=== PATIENT | male | born 1965 | race Caucasian/White ===

== ENCOUNTER 2018-05-26 23:57 | Emergency (ER) | payer OTHER, MEDICAID ==
[~2018-05-26] VITALS: Ht 185.4 cm; Wt 192.8 kg
[2018-05-27 00:04] VITALS: Ht 185.4 cm; Wt 192.8 kg
[2018-05-27 00:24] LABS: BASOPHILS 0.1 % (0-2); EOSINOPHILS 1.1 % (0-7); HEMATOCRIT 44.6 % (42.0-54.0); HEMOGLOBIN 14.6 g/dL (13.5-17.5); IMMATURE GRANULOCYTES 0.2 % (0-5); LYMPHOCYTES 19.9 % (15-50); MCH 29.1 pg (26.0-34.0); MCHC 32.7 g/dL (31.0-37.0); MCV 88.8 fL (80.0-100.0); MEAN PLATELET VOLUME 12.1 fL (7.4-10.4); MONOCYTES 6.5 % (2-11); NEUTROPHILS 72.2 % (40-80); PLATELET COUNT 170 10x3/uL (130-400); RBC 5.02 10x6/uL (4.20-6.10); RDW 14.6 % (11.5-14.5); WBC 9.3 10x3/uL (4.8-10.8)
[2018-05-27 00:42] LABS: APTT 37.2 SECONDS (22.8-39.4); INR 1.14 (0.85-1.17); PROTIME 14.1 SECONDS (11.6-15.0)
[2018-05-27 00:55] LABS: ALBUMIN 3.6 g/dL (3.4-5.0); ALKALINE PHOSPHATASE 74 U/L (46-116); ALT (SGPT) 65 U/L (10-68); BILIRUBIN - TOTAL 0.45 mg/dL (0.2-1.3); CALC OSMOLALITY 271 mosm/kg (275-300); CALCIUM 9.4 mg/dL (8.5-10.1); CARBON DIOXIDE 24.7 mmol/L (21.0-32.0); CHLORIDE - SERUM 100 mmol/L (98-107); CREATININE - SERUM 0.8 mg/dL (0.6-1.3); GLUCOSE 129 mg/dL (74-106); POTASSIUM - SERUM 3.7 mmol/L (3.5-5.1); PROTEIN - SERUM 7.9 g/dL (6.4-8.2); SODIUM 136 mmol/L (136-145); UREA NITROGEN 7 mg/dL (7-18); eGFR NON AFRICAN AMERICAN > 90 mL/min (90-120)
[2018-05-27 01:04] LABS: CKMB 0.5 U/L (0.0-3.6); CREATINE KINASE 55 UL (21-232); MAGNESIUM - SERUM 1.9 mg/dL (1.8-2.4)
[2018-05-27 01:09] LABS: TROPONIN-I < 0.017 ng/mL (0.000-0.060)
[2018-05-27 02:02] VITALS: BP 150/79
== END 2018-05-27 02:02 | disposition home or self-care (01) ==
LOC: D.ER 23:57
PROVIDERS: Family Medicine
DX: R00.2 Palpitations (principal); T43.615A Adverse effect of caffeine, initial encounter; Y92.019 Unspecified place in single-family (private) house as the place of occurrence of the external cause; E66.01 Morbid (severe) obesity due to excess calories

== ENCOUNTER 2018-05-29 21:43 | Emergency (ER) | payer OTHER, MEDICAID ==
[2018-05-29 22:18] LABS: BASOPHILS 0.2 % (0-2); EOSINOPHILS 1.2 % (0-7); HEMATOCRIT 44.9 % (42.0-54.0); HEMOGLOBIN 14.7 g/dL (13.5-17.5); IMMATURE GRANULOCYTES 0.3 % (0-5); LYMPHOCYTES 14.1 % (15-50); MCH 29.3 pg (26.0-34.0); MCHC 32.7 g/dL (31.0-37.0); MCV 89.4 fL (80.0-100.0); MEAN PLATELET VOLUME 12.5 fL (7.4-10.4); MONOCYTES 7.3 % (2-11); NEUTROPHILS 76.9 % (40-80); RBC 5.02 10x6/uL (4.20-6.10); WBC 10.8 10x3/uL (4.8-10.8)
[2018-05-29 22:22] LABS: PLATELET COUNT 219 10x3/uL (130-400)
[2018-05-29 22:35] LABS: ALBUMIN 3.6 g/dL (3.4-5.0); ALKALINE PHOSPHATASE 75 U/L (46-116); ALT (SGPT) 79 U/L (10-68); BILIRUBIN - TOTAL 0.55 mg/dL (0.2-1.3); CALC OSMOLALITY 271 mosm/kg (275-300); CHLORIDE - SERUM 100 mmol/L (98-107); CREATININE - SERUM 0.8 mg/dL (0.6-1.3); GLUCOSE 120 mg/dL (74-106); PROTEIN - SERUM 8.4 g/dL (6.4-8.2); SODIUM 136 mmol/L (136-145); UREA NITROGEN 9 mg/dL (7-18); eGFR NON AFRICAN AMERICAN > 90 mL/min (90-120)
[2018-05-29 22:42] LABS: CREATINE KINASE 139 UL (21-232); PRO BNP 177 pg/mL (0-125); TROPONIN-I < 0.017 ng/mL (0.000-0.060)
== END 2018-05-29 23:25 | disposition home or self-care (01) ==
LOC: D.ER 21:43
PROVIDERS: Family Medicine
DX: R00.2 Palpitations (principal)

== ENCOUNTER 2018-06-13 20:25 | Emergency (ER) | payer OTHER, MEDICAID ==
[~2018-06-13] VITALS: Ht 185.4 cm; Wt 195.0 kg
[2018-06-13 20:30] VITALS: Ht 185.4 cm; Wt 195.0 kg
[2018-06-13 21:28] LABS: BASOPHILS 0.1 % (0-2); EOSINOPHILS 0.9 % (0-7); HEMATOCRIT 40.6 % (42.0-54.0); HEMOGLOBIN 13.3 g/dL (13.5-17.5); IMMATURE GRANULOCYTES 0.1 % (0-5); LYMPHOCYTES 10.7 % (15-50); MCHC 32.8 g/dL (31.0-37.0); MCV 88.6 fL (80.0-100.0); MEAN PLATELET VOLUME 11.1 fL (7.4-10.4); MONOCYTES 6.3 % (2-11); NEUTROPHILS 81.9 % (40-80); PLATELET COUNT 191 10x3/uL (130-400); RBC 4.58 10x6/uL (4.20-6.10); RDW 14.1 % (11.5-14.5); WBC 9.6 10x3/uL (4.8-10.8)
[2018-06-13 21:48] LABS: ALBUMIN 3.1 g/dL (3.4-5.0); ALKALINE PHOSPHATASE 76 U/L (46-116); ALT (SGPT) 27 U/L (10-68); BILIRUBIN - TOTAL 0.23 mg/dL (0.2-1.3); CALC OSMOLALITY 287 mosm/kg (275-300); CALCIUM 8.7 mg/dL (8.5-10.1); CARBON DIOXIDE 25.8 mmol/L (21.0-32.0); CHLORIDE - SERUM 105 mmol/L (98-107); CREATININE - SERUM 1.1 mg/dL (0.6-1.3); GLUCOSE 141 mg/dL (74-106); POTASSIUM - SERUM 3.8 mmol/L (3.5-5.1); PROTEIN - SERUM 7.4 g/dL (6.4-8.2); SODIUM 143 mmol/L (136-145); UREA NITROGEN 14 mg/dL (7-18); eGFR NON AFRICAN AMERICAN 75 mL/min (90-120)
[2018-06-13 21:51] LABS: APPEARANCE CLEAR (CLEAR); BILIRUBIN NEGATIVE (NEGATIVE); COLOR YELLOW (YELLOW); GLUCOSE NEGATIVE (NEGATIVE); KETONE NEGATIVE (NEGATIVE); NITRITE POSITIVE (NEGATIVE); PROTEIN NEGATIVE (NEGATIVE); SPECIFIC GRAVITY 1.025 (1.005-1.020); UROBILINOGEN NORMAL (NORMAL)
[2018-06-13 21:52] LABS: BACTERIA MODERATE /hpf (NONE SEEN); RED CELLS - URINE OCC /hpf (0-5); WHITE CELLS - URINE 0-5 /hpf (0-5)
[2018-06-13 21:57] LABS: PRO BNP 158 pg/mL (0-125)
[2018-06-13] MEDS ORDERED: MACROBID100 MG PO (22:17)
[2018-06-13 22:30] VITALS: BP 142/76
== END 2018-06-13 22:30 | disposition home or self-care (01) ==
LOC: D.ER 20:25
PROVIDERS: Family Medicine
DX: N39.0 Urinary tract infection, site not specified (principal); J44.9 Chronic obstructive pulmonary disease, unspecified

== ENCOUNTER → 2018-07-19 12:54 | Outpatient (CLI) | payer OTHER, MEDICAID ==
[2018-06-13 20:30] VITALS: BMI 56.7
[~2018-07-19 12:54] MED LIST: FLOMAX0.4 MG PO; FUROSEMIDE40 MG PO; MACROBID100 MG PO
== END | disposition home or self-care (01) ==
LOC: D.CT 12:54
DX: R33.9 Retention of urine, unspecified (principal)

== ENCOUNTER 2018-07-21 06:50 | Day surgery (SDC) | payer OTHER, MEDICAID ==
[2018-07-18 15:59] LABS: HEMATOCRIT 40.8 % (42.0-54.0); HEMOGLOBIN 13.3 g/dL (13.5-17.5); MCH 28.9 pg (26.0-34.0); MCHC 32.6 g/dL (31.0-37.0); MCV 88.7 fL (80.0-100.0); MEAN PLATELET VOLUME 10.7 fL (7.4-10.4); RBC 4.6 10x6/uL (4.20-6.10); RDW 13.9 % (11.5-14.5); WBC 8.5 10x3/uL (4.8-10.8)
[2018-07-18 16:25] LABS: CALC OSMOLALITY 277 mosm/kg (275-300); CALCIUM 8.8 mg/dL (8.5-10.1); CARBON DIOXIDE 26.5 mmol/L (21.0-32.0); CHLORIDE - SERUM 103 mmol/L (98-107); CREATININE - SERUM 0.8 mg/dL (0.6-1.3); GLUCOSE 123 mg/dL (74-106); POTASSIUM - SERUM 4.2 mmol/L (3.5-5.1); SODIUM 139 mmol/L (136-145); UREA NITROGEN 10 mg/dL (7-18); eGFR NON AFRICAN AMERICAN > 90 mL/min (90-120)
[~2018-07-21] VITALS: Ht 185.4 cm; Wt 192.8 kg
[2018-07-21 07:39] VITALS: BP 141/83; Ht 185.4 cm; Wt 192.8 kg
--- NOTE | 2018-07-21 11:35 | NUR ---
REC'D PT FROM SURGERY. FAMILY AT BEDSIDE. JONES TO GRAVITY DRAINAGE WITH YELLOW URINE NOTED. CRANBERRY JUICE AND FL TRAY BROUGHT TO PT.
--- NOTE | 2018-07-21 12:00 | NUR ---
TOLERATED FL TRAY. IV DC'D WITH CATHETER INTACT.
--- NOTE | 2018-07-21 12:10 | NUR ---
WRITTEN AND VERBAL DC INST, GIVEN TO PT. VERBALIZED UNDERSTANDING. PATIENT RELATES HE DOES NOT WANT A LEG BAG FOR CATHETER. INSTRUCTION SHEET FOR CATHETR CARE GIVEN TO PT. RELATES HE HAS HAD CATHETERS BEFORE.
--- NOTE | 2018-07-21 12:25 | NUR ---
DC'D HOME WITH FAMILY VIA PRIVATE VEHICLE. TAKEN TO VEHICLE VIA WC. STABLE AT TIME OF DC.
--- NOTE | 2018-07-21 12:53 | OP ---
PATIENT NAME: JAVIER SAAB MEDICAL RECORD: [id number] :69 LOCATION:[facility] ADMISSION DATE: SURGEON: JOSE L LYNNE MD DATE OF OPERATION: 07/21/2018 SURGEON: Jose L Lynne MD ANESTHESIA: TIVA by Mello Askew CRNA PROCEDURES: Cystoscopy, direct vision internal urethrotomy. FINDINGS: Very tight urethral stricture in the bulbar urethra. DIAGNOSIS: Bulbar urethral stricture. SPECIMENS: None. ESTIMATED BLOOD LOSS: Minimal. CLINICAL HISTORY: This is a 52-year-old male, who has a history of urethral strictures. He has had 3 stricture surgeries performed by his urologist in [place] and the last one was done by urologist in [place], [place]. He continues to have difficulty voiding with nocturia times 3 to 5 and a very slow urinary flow. His postvoid residual when we examined him was 11 mL. He comes today to have cystoscopy and DVIU of his urethral stricture. He is not allergic to any medications. He was given [employer] delivery consultant to the OR. DESCRIPTION OF PROCEDURE: The patient was given IV sedation. He was then placed into dorsal lithotomy position and prepped and draped. The optic urethrotome was used with a 0-degree lens. The anterior urethra was normal until we came to a very tight pinhole stricture in the bulbar urethra. A Sensor wire was placed through the stricture lumen and into the bladder. The stricture itself was scarcely wider than the diameter of the Sensor wire. We then placed a cold knife in the 12 o'clock position through the stricture zone and cut our way through the stricture zone. Finally, the scope was able to pass through the stricture zone into the prostatic urethra and into the bladder. The wire was indeed within the bladder. The scope was then removed, leaving the Sensor wire in place. Over the Sensor wire, we inserted a 16-T[place]ut[place] tip Rasmussen catheter. Once the catheter was fully in the bladder, we inflated the balloon with 10 cc of sterile water. The Sensor wire was then completely removed. The catheter was put to bag drainage. The patient will keep the catheter for a period of 1 week to allow the incised tissue to heal to the diameter of the catheter. We will see him at that time in 1 weeks' time to remove the Rasmussen catheter. TRANSINT:[id number] Voice Confirmation ID: [id number] DOCUMENT ID: [id number] OPERATIVE REPORT [id number] JAVIER SAAB ROBERT S MD at 1253 CC: [id number] DICTATION DATE: 07/21/18 1135 HOSPICE ADMINISTRATOR: 07/21/18 1151 [place] [id number] [place] [id number]
== END 2018-07-21 12:25 | disposition home or self-care (01) ==
LOC: D.OPS 06:50 → D.PAN 10:25 → D.OPS 12:25 → D.PAN 12:30
PROVIDERS: Anesthesiology
DX: N35.812 Other bulbous urethral stricture, male (principal); Z01.812 Encounter for preprocedural laboratory examination

== ENCOUNTER → 2018-08-10 13:52 | Outpatient (CLI) | payer OTHER, MEDICAID ==
[2018-07-21 07:39] VITALS: BMI 56.2
== END | disposition home or self-care (01) ==
LOC: D.LABREF 13:52
DX: D72.829 Elevated white blood cell count, unspecified (principal)

== ENCOUNTER → 2018-08-23 08:25 | Outpatient (CLI) | payer OTHER, MEDICAID ==
[~2018-08-23] VITALS: Ht 185.4 cm; Wt 195.0 kg
[2018-08-23 10:17] VITALS: Ht 185.4 cm; Wt 195.0 kg
== END | disposition home or self-care (01) ==
LOC: D.FANS 08:25
PROVIDERS: ATTEND Family Medicine
DX: E66.01 Morbid (severe) obesity due to excess calories (principal); Z68.43 Body mass index [BMI] 50.0-59.9, adult

== ENCOUNTER 2018-10-10 23:01 | Emergency (ER) | payer OTHER, MEDICAID ==
[~2018-10-10] VITALS: Ht 185.4 cm; Wt 188.7 kg
[2018-10-10 23:23] VITALS: Ht 185.4 cm; Wt 188.7 kg
== END 2018-10-10 23:27 | disposition left against medical advice (07) ==
LOC: D.ER 23:01
DX: R03.0 Elevated blood-pressure reading, without diagnosis of hypertension (principal)

== ENCOUNTER 2019-01-17 21:12 | Emergency (ER) | payer OTHER, MEDICAID ==
[~2019-01-17] VITALS: Ht 185.4 cm; Wt 158.2 kg
[2019-01-17 22:06] VITALS: Ht 185.4 cm; Wt 158.2 kg
[2019-01-17 23:21] LABS: BASOPHILS 0.1 % (0-2); EOSINOPHILS 0.4 % (0-7); HEMATOCRIT 41.2 % (42.0-54.0); IMMATURE GRANULOCYTES 0.3 % (0-5); LYMPHOCYTES 14.6 % (15-50); MCH 29.6 pg (26.0-34.0); MCV 87.1 fL (80.0-100.0); MEAN PLATELET VOLUME 10.9 fL (7.4-10.4); MONOCYTES 6.2 % (2-11); NEUTROPHILS 78.4 % (40-80); RBC 4.73 10x6/uL (4.20-6.10); RDW 14.2 % (11.5-14.5); WBC 9.9 10x3/uL (4.8-10.8)
[2019-01-17 23:23] LABS: PLATELET COUNT 242 10x3/uL (130-400)
[2019-01-17 23:34] LABS: APPEARANCE CLEAR (CLEAR); BILIRUBIN NEGATIVE (NEGATIVE); COLOR YELLOW (YELLOW); GLUCOSE NEGATIVE (NEGATIVE); KETONE SMALL mg/dL (NEGATIVE); NITRITE NEGATIVE (NEGATIVE); PROTEIN NEGATIVE (NEGATIVE); UROBILINOGEN NORMAL (NORMAL)
[2019-01-17 23:36] LABS: BACTERIA FEW /hpf (NONE SEEN); EPITHELIAL CELLS 0-5 /hpf (0-5); RED CELLS - URINE NONE SEEN /hpf (0-5); WHITE CELLS - URINE 0-5 /hpf (0-5)
[2019-01-17 23:38] LABS: ALBUMIN 3.4 g/dL (3.4-5.0); ALKALINE PHOSPHATASE 79 U/L (46-116); ALT (SGPT) 19 U/L (10-68); BILIRUBIN - TOTAL 0.49 mg/dL (0.2-1.3); CALC OSMOLALITY 271 mosm/kg (275-300); CARBON DIOXIDE 24.8 mmol/L (21.0-32.0); CHLORIDE - SERUM 98 mmol/L (98-107); GLUCOSE 114 mg/dL (74-106); POTASSIUM - SERUM 3.6 mmol/L (3.5-5.1); PROTEIN - SERUM 7.8 g/dL (6.4-8.2); SODIUM 136 mmol/L (136-145); UREA NITROGEN 10 mg/dL (7-18); eGFR NON AFRICAN AMERICAN 84 mL/min (90-120)
[2019-01-18 00:04] LABS: CREATINE KINASE 37 UL (21-232)
[2019-01-18 00:16] VITALS: BP 109/72
== END 2019-01-18 00:21 | disposition home or self-care (01) ==
LOC: D.ER 21:12
PROVIDERS: Family Medicine
DX: R20.2 Paresthesia of skin (principal); E88.89 Other specified metabolic disorders

== ENCOUNTER 2019-08-10 08:25 | Day surgery (SDC) | payer OTHER ==
[2019-08-09 14:23] LABS: HEMATOCRIT 47.1 % (42.0-54.0); HEMOGLOBIN 15.8 g/dL (13.5-17.5); MCH 30.3 pg (26.0-34.0); MCHC 33.5 g/dL (31.0-37.0); MCV 90.2 fL (80.0-100.0); MEAN PLATELET VOLUME 11.5 fL (7.4-10.4); RBC 5.22 10x6/uL (4.20-6.10); RDW 13.2 % (11.5-14.5); WBC 7.3 10x3/uL (4.8-10.8)
[2019-08-09 14:35] LABS: CALC OSMOLALITY 282 mosm/kg (275-300); CALCIUM 9.8 mg/dL (8.5-10.1); CARBON DIOXIDE 27.5 mmol/L (21.0-32.0); CHLORIDE - SERUM 101 mmol/L (98-107); GLUCOSE 85 mg/dL (74-106); SODIUM 142 mmol/L (136-145); UREA NITROGEN 16 mg/dL (7-18); eGFR NON AFRICAN AMERICAN 84 mL/min (90-120)
[~2019-08-10] VITALS: Ht 185.4 cm; Wt 132.4 kg
[~2019-08-10 08:25] MED LIST changes: +AUGMENTIN 875-11 TAB PO
[2019-08-10 09:00] VITALS: BP 140/76; Ht 185.4 cm; Wt 132.4 kg
--- NOTE | 2019-08-10 11:57 | OP ---
PATIENT NAME: JAVIER SAAB MEDICAL RECORD: [id number] :69 LOCATION:[facility] ADMISSION DATE: SURGEON: WESLEY LYNNE MD DATE OF OPERATION: 08/10/2019 SURGEON: Wesley Lynne MD ANESTHESIA: TIVA by Jennifer Veronica CRNA. DIAGNOSIS: Bulbar urethral stricture, post-infective. PROCEDURES: Cystoscopy, direct vision internal urethrotomy (DVIU), Rasmussen catheter insertion. FINDINGS: Tight bulbar urethral stricture. No prostatic obstruction, no bladder neck obstruction. Single ureteral orifices bilaterally with no bladder tumors. BLOOD LOSS: None. CLINICAL HISTORY: This is a 53-year-old male, who has a bulbar urethral stricture from urethritis in the past. Whether this was gonorrhea or chlamydia is uncertain. He has had multiple stricture surgeries done by urologist in [place] and his urologist in [place], [place]. Today, he has a very slow urinary stream again. It has not responded to tamsulosin and most likely represents a recurrence of the urethral stricture. He comes to have this incised with a DVIU. He is not allergic to any medications. He was given ampicillin and sulbactam life consultant to the OR. DESCRIPTION OF PROCEDURE: The patient was given IV sedation. He was placed in lithotomy position. Initially, cystoscopy was performed using a 17-Armenian cystoscope with 30-degree lens. A tight bulbar urethra stricture was seen. The scope could not pass through it. We switched to the 21-Armenian cystoscope and a Sensor wire was placed through the stricture lumen into the bladder. We then switched to the optic urethrotome and at the 12 o'clock position using the cold knife, the stricture was incised. The scope was then able to pass through into the bladder. The scope was removed. Over the wire, we inserted a 16-Armenian [place] tip Rasmussen catheter. Once it was fully in the bladder, the balloon was inflated with 10 cc of sterile water. This will allow the urethra to heal to the diameter of the catheter. I will see the patient in followup next week to remove the Rasmussen catheter. TRANSINT:[id number] Voice Confirmation ID: [id number] DOCUMENT ID: [id number] WESLEY LYNNE MD at 1157 CC: [id number] DICTATION DATE: 08/10/19 1001 SLOT MACHINE KEY PERSON: 08/10/19 1042 DEP [place] 08/10/19 [facility], [facility]901
== END 2019-08-10 10:35 | disposition home or self-care (01) ==
LOC: D.OPS 08:25 → D.PAN 10:15 → D.OPS 10:35 → D.PAN 11:45 → D.OPS 11:45
PROVIDERS: Anesthesiology; ATTEND Urology
DX: N35.112 Postinfective bulbous urethral stricture, not elsewhere classified, male (principal); N30.00 Acute cystitis without hematuria; E66.01 Morbid (severe) obesity due to excess calories; Z68.41 Body mass index [BMI] 40.0-44.9, adult; K80.20 Calculus of gallbladder without cholecystitis without obstruction

== ENCOUNTER 2020-11-04 11:34 | Emergency (ER) | payer OTHER ==
[~2020-11-04] VITALS: Ht 185.4 cm; Wt 154.5 kg
[2020-11-04 11:37] VITALS: BP 180/83; Ht 185.4 cm; Wt 154.5 kg
[2020-11-04 12:14] LABS: BASOPHILS 0.5 % (0-2); EOSINOPHILS 1.7 % (0-7); HEMATOCRIT 41.4 % (42.0-54.0); HEMOGLOBIN 13.6 g/dL (13.5-17.5); MCH 28.4 pg (26.0-34.0); MCHC 32.9 g/dL (31.0-37.0); MCV 86.5 fL (80.0-100.0); MEAN PLATELET VOLUME 8.4 fL (7.4-10.4); MONOCYTES 6.3 % (2-11); NEUTROPHILS 72.5 % (40-80); PLATELET COUNT 169 10x3/uL (130-400); RBC 4.78 10x6/uL (4.20-6.10); RDW 13.5 % (11.5-14.5); WBC 5.3 10x3/uL (4.8-10.8)
[2020-11-04 12:31] LABS: ANION GAP 9.2 mmol/L (8-16); APTT 33.1 SECONDS (22.8-39.4); CALCIUM 9.1 mg/dL (8.5-10.1); CARBON DIOXIDE 29.1 mmol/L (21.0-32.0); CREATININE - SERUM 1.1 mg/dL (0.6-1.3); POTASSIUM - SERUM 4.3 mmol/L (3.5-5.1)
[2020-11-04 12:32] LABS: INR 1.03 (0.85-1.17); PROTIME 12.4 SECONDS (11.6-15.0)
[2020-11-04 12:38] LABS: ALBUMIN 3.6 g/dL (3.4-5.0); BILIRUBIN - TOTAL 0.27 mg/dL (0.2-1.3); PROTEIN - SERUM 7.4 g/dL (6.4-8.2)
[2020-11-04] MEDS ORDERED: NAPROSYN500 MG PO (13:06)
== END 2020-11-04 14:22 | disposition home or self-care (01) ==
LOC: D.ER 11:34
PROVIDERS: Family Medicine
DX: I82.811 Embolism and thrombosis of superficial veins of right lower extremity (principal); I83.91 Asymptomatic varicose veins of right lower extremity; K21.9 Gastro-esophageal reflux disease without esophagitis; R73.9 Hyperglycemia, unspecified